=== PATIENT | female | born 1985 | race Caucasian/White ===

== ENCOUNTER → 2017-07-13 12:05 | Outpatient (CLI) | payer BC, SELFPAY ==
--- NOTE | 2017-07-13 12:13 | RAD_ITS ---
STUDY: X-RAY - RIGHT HAND, ATTENTION THIRD FINGER REASON FOR EXAM: Female, 32 years old. Pain at the proximal interphalangeal joint. TECHNIQUE: 3 view(s) of the finger were obtained. COMPARISON: None. FINDINGS: Normal metacarpal head. Normal metacarpophalangeal joint. Normal proximal phalanx. Normal middle phalanx. Normal distal phalanx. Normal proximal interphalangeal joint. Normal distal interphalangeal joint. RAD/Finger(s) Min 2 Views IMPRESSION: Normal x-ray examination of the finger. Electronically Signed: Dani Calderón MD at 12:25 EDT Tel [phone], Service support ,
== END ==
PROVIDERS: Family Provider Family Medicine; PCP Family Medicine; Visit Provider Family Medicine
DX: S60.049A Contusion of unspecified ring finger without damage to nail, initial encounter (principal)
CPT/HCPCS: 73140

== ENCOUNTER → 2018-02-18 12:06 | Outpatient (CLI) | payer BC, SELFPAY ==
--- NOTE | 2018-02-18 12:09 | RAD_ITS ---
STUDY: X-RAY - RIGHT HAND REASON FOR EXAM: Female, 33 years old. Trauma. TECHNIQUE: 3 view(s) of the hand. COMPARISON: Right fingers dated July 13, 2017 FINDINGS: Normal radiocarpal articulation. Normal distal radioulnar joint. Normal visualized carpal bones. Normal carpal articulations Normal carpometacarpal articulation of the thumb. Normal second through fifth carpometacarpal joints. Normal metacarpi. Normal metacarpophalangeal joint of the thumb. Normal interphalangeal joint of the thumb. Normal proximal and distal phalanges of the thumb. Normal metacarpophalangeal joints of the second through fifth fingers. Normal proximal and distal interphalangeal joints of the second through fifth fingers. Normal phalanges of the second through fifth fingers. The soft tissue structures are unremarkable. RAD/Hand Min 3 Views IMPRESSION: No acute osseous injury. Electronically Signed: Rita Bennett MD at 21:37 EST Tel , Service support ,
== END ==
PROVIDERS: Family Provider Family Medicine; PCP Family Medicine; Referring Provider Family Medicine; Visit Provider Family Medicine
DX: S69.91XS Unspecified injury of right wrist, hand and finger(s), sequela (principal)
CPT/HCPCS: 73130

== ENCOUNTER → 2019-03-13 15:30 | Outpatient (CLI) | payer BC, SELFPAY ==
[2019-03-19 13:47] LABS: HPV Reflexed? NOT INDICATED
== END ==
LOC: LABSPEC 15:32
PROVIDERS: Visit Provider Obstetrics & Gynecology
DX: Z12.4 Encounter for screening for malignant neoplasm of cervix (principal)
CPT/HCPCS: 88175; G0145

== ENCOUNTER 2021-03-30 10:40 | Outpatient (CLI) | payer BC, SELFPAY ==
[2021-04-04 17:57] LABS: HPV Reflexed? NOT INDICATED
== END 2021-03-30 23:59 | disposition home or self-care (01) ==
LOC: LABSPEC 10:41
PROVIDERS: Visit Provider Obstetrics & Gynecology
DX: Z12.4 Encounter for screening for malignant neoplasm of cervix (principal)
CPT/HCPCS: 88175; G0145

== ENCOUNTER 2022-01-27 16:56 | Emergency (ER) | payer BC, SELFPAY ==
[2022-01-27 16:58] VITALS: BP 120/76; PULSE 64; RESP 16; TEMP 36.3; O2SAT 99; BMI 22.4
--- NOTE | 2022-01-27 17:00 | RAD_ITS ---
INDICATION: trauma EXAMINATION/TECHNIQUE: X-RAY - LEFT XR Hand Min 3 Views 3 VIEWS COMPARISON: None. FINDINGS: No acute fracture or dislocation. No destructive bone changes. Joint spaces are well-maintained. Normal alignment. Soft tissues are unremarkable. No radiopaque foreign body or soft tissue gas. RAD/Hand Min 3 Views IMPRESSION: Negative. Electronically Signed: Erika Govea MD at 17:27 EST Reading Location ID and State: [id number] / Tel , Service support ,
--- NOTE | 2022-01-27 19:33 | EX.ED.UPPERE ---
HPI History of Present Illness Chief Complaint: Upper Extremity Injury Narrative Narrative: 36-year-old female presenting with pain in the right hand on third and fourth fingers. She states that intermittently got closed in a gait. She states that Kim hit the gate and posterior closed on her finger. She has pain here but no numbness and tingling. No lacerations. PFSH PFSH Allergy/AdvReac Type Severity Reaction Status Date / Time No Known Allergies Allergy Verified 01/27/22 16:58 Social History Smoking Status: Never smoker ROS ROS ED Constitutional Constitutional ED: Denies chills, fever(s) or sweats Eyes Eyes: Denies blurry vision or change in vision ENT ENT ED: Denies ear pain or sore throat Cardiovascular Cardiovascular: Denies chest pain, palpitations or racing heartbeat Respiratory/Chest Respiratory/Chest: Denies cough, dyspnea or sputum Gastrointestinal Gastrointestinal: Denies abdominal pain, constipation, diarrhea, nausea or vomiting Genitourinary Genitourinary ED: Denies dysuria, hematuria or urinary frequency Musculoskeletal Musculoskeletal: Reports other Details: Right hand pain ; Denies arthralgias, myalgias or neck pain Integumentary Denies abscess, Abrasions or rash Neurologic Neurologic: Denies headache(s), paresthesias or weakness Psychiatric Psychiatric: Denies anxiety, depression, suicidal ideation or suicidal thoughts Endocrine Endocrinology: Denies polydipsia or polyuria EXAM Physical Exam Const Vital Signs: 01/27/22 16:58 Temperature 97.3 F L Temperature Source Temporal Pulse Rate 64 Respiratory Rate 16 Blood Pressure 120/76 Blood Pressure Mean 90 Pulse Ox 99 Oxygen Delivery Method Room Air General Appearance ED: Negative for pallor HEENT Reports normocephalic Eyes PERRL and EOMs intact bilaterally Neck no lymphadenopathy and supple Resp normal respiratory effort Cardio regular rate and regular rhythm GI non-distended Narrative: Deferred Back/Spine General Back: CVA tenderness Extremity Extremity Narrative: Bruising and swelling to the right third and fourth digits between the PIP and the DIP. Neurovascular intact brisk cap refill to all 5 fingers. Neuro oriented x3 and CN's II-XII intact bilaterally Sensorium / Orientation: alert Motor Exam: strength 5/5 throughout Psych mental status grossly normal Attitude: No agitated Skin no rashes or lesions noted and no wounds General Skin Exam: Negative for jaundice or pallor MDM MDM MDM Narrative Medical decision making narrative: Patient presenting with hand pain. She does have bruising on the second and third digits. There is no obvious deformity. I obtained x-rays of the right hand on my interpretation there are no acute fractures. Patient counseled alternate Tylenol and ibuprofen and ice and elevate for pain control. She will follow-up with her PCP to ensure resolution. Impression: 1. Right hand contusion Lab Data Attestation: I reviewed the patient's lab results. Radiography Diagnostic Testing: Clinical Impression(s) from Imaging Studies Hand X-Ray 01/27/22 17:00 IMPRESSION: Negative. Electronically Signed: Erika Govea MD at 17:27 EST Reading Location ID and State: [id number] / Tel , Service support , Discharge Plan Triage Chief Complaint: Upper Extremity Injury ED Provider: Gutierrez Olivarez Dx/Rx/DC Orders Instructions: ED Finger Contusion Primary Care Provider: Gerard Zuniga Referrals: Gerard Zuniga MD [Primary Care Provider] - Disposition Disposition: Home, Self Care
== END 2022-01-27 19:42 | disposition home or self-care (01) ==
PROVIDERS: Emergency Provider Student in an Organized Health Care Education/Training Program; PCP Family Medicine; Visit Provider Student in an Organized Health Care Education/Training Program
DX: S60.221A Contusion of right hand, initial encounter (principal); W23.0XXA Caught, crushed, jammed, or pinched between moving objects, initial encounter
CPT/HCPCS: 73130; 99282

== ENCOUNTER → 2022-12-14 | Outpatient (CLI) | payer BC, SELFPAY ==
--- NOTE | 2022-12-14 14:26 | US_ITS ---
INDICATION: IUD PLACEMENT EXAMINATION: Ultrasound US Pelvis Non-OB Complete TECHNIQUE: Transabdominal pelvic ultrasound was performed. Grayscale, spectral waveform, and color flow Doppler evaluation of the adnexa. COMPARISON: None. FINDINGS: UTERUS: Anteverted. The uterus measures 9.2 x 3.4 x 5.4 cm. There is no uterine mass. The endometrial stripe measures 3 mm in AP diameter which is within normal limits. Intrauterine device is located within the endometrial canal from mid body to the lower uterine segment RIGHT OVARY: 3.4 x 2.0 x 2.7 cm. Multiple normal small follicles. Preserved color vascular flow. LEFT OVARY: 2.5 x 1.8 x 2.3 cm. Multiple normal small follicles. Preserved color vascular flow FREE FLUID: None. BLADDER: Anechoic without focal wall thickening. Prevoid volume 504 ml. US/Pelvic (Non ) IMPRESSION: Intrauterine device is located within the endometrial canal from mid body to the lower uterine segment Normal ovaries. Well filled bladder 504 ml. Electronically Signed: Sung Ac MD at 22:12 EDT ,
== END | disposition home or self-care (01) ==
PROVIDERS: PCP Family Medicine; Referring Provider Midwife; Visit Provider Midwife
DX: T83.32XA Displacement of intrauterine contraceptive device, initial encounter (principal)
CPT/HCPCS: 76856

== ENCOUNTER → 2024-01-28 | Outpatient (CLI) | payer BC, SELFPAY ==
[2024-01-28 17:44] LABS: Absolute Lymphocyte Count 2.53 X10^3/uL (0.83-4.51); Absolute Neutrophil Count 3.7 X10^3/uL (2.0-7.7); Basophil# 0.03 X10^3/uL; Basophil% 0.4 % (0-1); Eosinophil# 0.11 X10^3/uL; Eosinophils% 1.5 % (0-5); Hematocrit 41.9 % (37-47); Lymphocyte # 2.53 X10^3/ul (0.83-4.51); Lymphocyte % 34.3 % (19-41); Mean Corp Hgb Conc 33.4 g/dL (32-36); Mean Corpuscular Hgb 32.2 pg (27.0-32.0); Mean Corpuscular Volume 96.3 fL (81-99); Mean Platelet Vol. 10.4 fl (6.2-12.0); Monocyte# 1.04 X10^3/uL; Monocyte% 14.1 % (0-10); NRBC Flagged by Analyzer 0 % (0-5); Neutrophil # 3.65 X10^3/uL (2.7-7.7); Neutrophil % 49.4 % (47-70); Platelet Count 236 K/mm3 (150-450); RBC Distribution Width CV 12.3 % (11.6-14.6); RBC Distribution Width SD 43.8 fl (35.1-43.9); Red Blood Count 4.35 M/mm3 (4.2-5.4); White Blood Count 7.4 K/mm3 (4.4-11.0)
[2024-01-28 17:52] LABS: AST(SGOT) 14 U/L (15-37); Alanine Aminotransfer ALT/SGPT 23 U/L (13-56); Albumin, Serum 3.9 g/dL (3.2-5.0); Alkaline Phosphatase 87 U/L (45-117); Anion Gap 5 (5-15); BUN 15 mg/dL (7-18); BUN/Creat Ratio 20.6 RATIO (10-20); CRP 7.16 mg/L (0.0-3.0); Calcium,Total 9.5 mg/dL (8.5-10.1); Chloride 106 mmol/L (98-107); Creatinine, Serum 0.73 mg/dL (0.55-1.02); EST Glomerular Filtration Rate 95 mL/min (>60); Est Glom Filt Rate - Afr Amer 115 mL/min (>60); Globulin 3.8 g/dL (2.2-4.2); Glucose 71 mg/dL (74-106); Potassium 3.4 mmol/L (3.5-5.1); Protein, Total 7.7 g/dL (6.4-8.2); Rheumatoid Factor < 10.0 IU/mL (<15); Sodium Level 138 mmol/L (136-145)
[2024-01-28 18:02] LABS: Erythrocyte Sedimentation Rate 5 mm/hr (0-30)
[2024-01-30 15:07] LABS: CCP IgG Antibodies 0 units (0-19); Lyme Scn Total Ab w/Rflx Negative (Negative); PROEL- A/G Ratio 1.3 (0.7-1.7); PROEL- Albumin 3.9 g/dL (2.9-4.4); PROEL- Alpha-1 Globulin 0.3 g/dL (0.0-0.4); PROEL- Alpha-2 Globulin 0.7 g/dL (0.4-1.0); PROEL- Beta Globulin 1.1 g/dL (0.7-1.3); PROEL- Globulin, Total 3.1 g/dL (2.2-3.9); PROEL-M-Spike Not Observed g/dL (Not Observed)
[2024-01-31 11:08] LABS: Anti-Nuclear Antibody Test Positive (.)
== END | disposition home or self-care (01) ==
LOC: MFPLAB 16:10
PROVIDERS: PCP Family Medicine; Referring Provider Family Medicine; Visit Provider Family Medicine
DX: M13.0 Polyarthritis, unspecified (principal)
CPT/HCPCS: 36415; 80053; 84165; 85025; 85652; 86038; 86140; 86200; 86431; 86618